=== PATIENT | female | born 1985 | race Caucasian/White ===

== ENCOUNTER 2020-07-26 17:54 | Emergency (ER) | payer MEDICAID ==
[2020-07-26] MEDS ORDERED: Amoxicillin/Clavulanate K 875-125 MG Tab PO ONE (17:55)
[2020-07-26] MEDS ORDERED: Sodium Chloride 0.9% 10 ML Syringe FLUSH PRN (18:22)
[2020-07-26] MEDS ORDERED: Ketorolac 30 MG/ML SDV IVPUSH STA (18:22)
[2020-07-26] MEDS ORDERED: Sodium Chloride 0.9% 1,000 ML IV SCH (18:30)
[2020-07-26] MEDS ORDERED: Acetaminophen/HYDROcodone 325-5 MG Tab PO STA (18:36)
[2020-07-26] MEDS ORDERED: Ondansetron 4 MG Tab.DIS PO STA (18:36)
--- NOTE | 2020-07-26 18:43 | EDM.PDOC ---
ED HPI GENERAL MEDICAL PROBLEM - General Stated Complaint: Abdominal pain Time Seen by Provider: 07/26/20 18:00 Source of Information: Reports: Patient History Limitations: Reports: No Limitations - History of Present Illness INITIAL COMMENTS - FREE TEXT/NARRATIVE: Patient presented to the ED because of abdominal pain which started at 1530. The pain is sharp and cramping,5/10, with associated nausea but no vomiting. There is no fever, chils, cough or cold symptoms. Two weeks ago she was diagnosed with diverticulitis which was treated with amoxicillin. Middle Abdomen Pain Score (Numeric/FACES): 4 - Related Data Allergies Allergy/AdvReac Type Severity Reaction Status Date / Time iodine Allergy Itching Verified 07/26/20 18:48 Home Meds: Home Meds Ciprofloxacin [Ciprofloxacin HCl] 500 mg PO BID #19 tablet 07/29/20 [Rx] metroNIDAZOLE [Flagyl] 500 mg PO Q8H #29 tablet 07/29/20 [Rx] ED ROS GENERAL - Review of Systems Review Of Systems: See Below Constitutional: Reports: No Symptoms HEENT: Reports: No Symptoms Respiratory: Reports: No Symptoms Cardiovascular: Reports: No Symptoms Endocrine: Reports: No Symptoms GI/Abdominal: Reports: Abdominal Pain, Nausea : Reports: No Symptoms Musculoskeletal: Reports: No Symptoms Skin: Reports: No Symptoms Neurological: Reports: No Symptoms ED EXAM, GI/ABD - Physical Exam Exam: See Below Exam Limited By: No Limitations General Appearance: Alert, No Apparent Distress Ears: Normal External Exam, Normal Canal Nose: Normal Inspection, Normal Mucosa Throat/Mouth: Normal Inspection, Normal Lips, Normal Teeth Head: Atraumatic, Normocephalic Neck: Normal Inspection, Supple, Non-Tender, Full Range of Motion Respiratory/Chest: No Respiratory Distress, Lungs Clear, Normal Breath Sounds, No Accessory Muscle Use, Chest Non-Tender Cardiovascular: Normal Peripheral Pulses, Regular Rate, Rhythm, No Edema, No Gallop, No JVD, No Murmur GI/Abdominal Exam: Normal Bowel Sounds, Soft, No Organomegaly, No Distention, No Abnormal Bruit, Other (tenderness over tle RLQ and LLQ and epigastric area) Back Exam: Normal Inspection, Full Range of Motion Extremities: Normal Inspection, Normal Range of Motion, Non-Tender, No Pedal Edema, Normal Capillary Refill Neurological: Alert, Oriented, CN II-XII Intact Course - Vital Signs Text/Narrative:: Labs and CT pending [place] 5/325, 2 po x1 Zofran ODT There was a change in shift so Dr. Edwards will take care of the discharge planning part. See Dr. Rojas' note for further details. Last Recorded V/S: Last Vital Signs Temp 36.9 C 07/26/20 17:55 Pulse 83 07/26/20 21:15 Resp 18 07/26/20 21:15 BP 132/78 07/26/20 21:15 Pulse Ox 98 07/26/20 21:15 - Orders/Labs/Meds Labs: Laboratory Tests 07/26/20 07/26/20 07/26/20 Range/Units 18:40 18:40 18:45 WBC 12.8 H (3.0-10.3) x10-3/uL RBC 4.60 (3.60-5.20) x10(6)uL Hgb 14.2 (11.4-15.5) g/dL Hct 41.9 (34.2-48.2) % MCV 91.1 (76.7-100.5) fL MCH 30.8 (23.9-33.9) pg MCHC 33.8 (31.9-34.8) g/dL RDW 13.8 (12.3-16.5) % Plt Count 230 (151-488) x10(3)uL MPV 8.4 (7.1-12.4) fL Neut % (Auto) 76.1 (30.8-76.2) % Lymph % (Auto) 16.0 L (18.4-52.1) % Craig % (Auto) 6.5 (4.4-15.7) % Eos % (Auto) 0.7 (0.6-8.1) % Baso % (Auto) 0.7 (0.2-1.5) % Neut # (Auto) 9.8 H (1.5-6.3) x10-3/uL Lymph # (Auto) 2.0 (1.0-4.4) x10-3/uL Craig # (Auto) 0.8 (0.3-1.0) x10-3/uL Eos # (Auto) 0.1 (0.0-0.8) x10-3/uL Baso # (Auto) 0.1 (0.0-0.1) x10-3/uL Sodium (135-145) mmol/L Potassium (3.5-5.3) mmol/L Chloride (100-110) mmol/L Carbon Dioxide (21-32) mmol/L BUN (7-18) mg/dL Creatinine (0.55-1.02) mg/dL Est Cr Clr Drug Dosing mL/min Estimated GFR (MDRD) (>60) BUN/Creatinine Ratio (9-20) Glucose (80-116) mg/dL Calcium (8.6-10.2) mg/dL Total Bilirubin (0.1-1.3) mg/dL AST (5-25) IU/L ALT (12-36) U/L Alkaline Phosphatase (56-112) IU/L Total Protein (6.0-8.0) g/dL Albumin (3.5-5.2) g/dL Globulin g/dL Albumin/Globulin Ratio Amylase (25-115) U/L Lipase (73-393) U/L Urine Color Yellow (YELLOW) Urine Appearance Clear (CLEAR) Urine pH 5.0 (5.0-6.5) Ur Specific Norden 1.025 (1.010-1.025) Urine Protein Negative (NEGATIVE) mg/dL Urine Glucose (UA) Normal (NORMAL) mg/dL Urine Ketones Negative (NEGATIVE) mg/dL Urine Occult Blood Negative (NEGATIVE) Urine Nitrite Negative (NEGATIVE) Urine Bilirubin Negative (NEGATIVE) Urine Urobilinogen 1 H (NEGATIVE) mg/dL Ur Leukocyte Esterase Negative (NEGATIVE) Urine RBC 0-5 (0-5) Urine WBC 0-5 (0-5) Ur Squamous Epith Cells Few H (NS,R,O) Urine Bacteria Few H (NS) Urine HCG, Qual Negative (NEGATIVE) 07/26/20 07/26/20 Range/Units 18:45 18:45 WBC (3.0-10.3) x10-3/uL RBC (3.60-5.20) x10(6)uL Hgb (11.4-15.5) g/dL Hct (34.2-48.2) % MCV (76.7-100.5) fL MCH (23.9-33.9) pg MCHC (31.9-34.8) g/dL RDW (12.3-16.5) % Plt Count (151-488) x10(3)uL MPV (7.1-12.4) fL Neut % (Auto) (30.8-76.2) % Lymph % (Auto) (18.4-52.1) % Craig % (Auto) (4.4-15.7) % Eos % (Auto) (0.6-8.1) % Baso % (Auto) (0.2-1.5) % Neut # (Auto) (1.5-6.3) x10-3/uL Lymph # (Auto) (1.0-4.4) x10-3/uL Craig # (Auto) (0.3-1.0) x10-3/uL Eos # (Auto) (0.0-0.8) x10-3/uL Baso # (Auto) (0.0-0.1) x10-3/uL Sodium 142 (135-145) mmol/L Potassium 3.8 (3.5-5.3) mmol/L Chloride 104 (100-110) mmol/L Carbon Dioxide 27 (21-32) mmol/L BUN 11 (7-18) mg/dL Creatinine 0.9 (0.55-1.02) mg/dL Est Cr Clr Drug Dosing 70.59 mL/min Estimated GFR (MDRD) > 60 (>60) BUN/Creatinine Ratio 12.2 (9-20) Glucose 126 H (80-116) mg/dL Calcium 8.3 L (8.6-10.2) mg/dL Total Bilirubin 0.2 (0.1-1.3) mg/dL AST 29 H (5-25) IU/L ALT 47 H (12-36) U/L Alkaline Phosphatase 63 (56-112) IU/L Total Protein 7.0 (6.0-8.0) g/dL Albumin 3.2 L (3.5-5.2) g/dL Globulin 3.8 g/dL Albumin/Globulin Ratio 0.8 Amylase 33 (25-115) U/L Lipase 75 (73-393) U/L Urine Color (YELLOW) Urine Appearance (CLEAR) Urine pH (5.0-6.5) Ur Specific Norden (1.010-1.025) Urine Protein (NEGATIVE) mg/dL Urine Glucose (UA) (NORMAL) mg/dL Urine Ketones (NEGATIVE) mg/dL Urine Occult Blood (NEGATIVE) Urine Nitrite (NEGATIVE) Urine Bilirubin (NEGATIVE) Urine Urobilinogen (NEGATIVE) mg/dL Ur Leukocyte Esterase (NEGATIVE) Urine RBC (0-5) Urine WBC (0-5) Ur Squamous Epith Cells (NS,R,O) Urine Bacteria (NS) Urine HCG, Qual (NEGATIVE) Meds: Medications Discontinued Medications Generic Name Dose Route Start Last Admin Trade Name Freq PRN Reason Stop Dose Admin Hydrocodone Bitart/Acetaminophen 2 tab 07/26/20 18:36 07/26/20 18:49 Acetaminophen/Hydrocodone 325-5 Mg Tab PO 07/26/20 18:37 2 tab NOW STA Administration Amoxicillin/Clavulanate Potassium 20 tab 07/26/20 17:55 Amoxicillin/Clavulanate K 875-125 Mg Tab PO 07/26/20 17:56 .STK-MED ONE Sodium Chloride 1,000 mls @ 999 mls/hr 07/26/20 18:30 Normal Saline IV ASDIRECTED [facility] Dextrose/Sodium Chloride 1,000 mls @ 125 mls/hr 07/26/20 20:45 Dextrose 5%-Normal Saline IV ASDIRECTED [facility] Ciprofloxacin/Dextrose 400 mg/ 200 mls @ 200 mls/hr 07/26/20 21:00 Premix IV Q8H HILDA Metronidazole 500 mg/ Premix 100 mls @ 100 mls/hr 07/26/20 20:45 IV Q8H [facility] Ketorolac Tromethamine 30 mg 07/26/20 18:22 07/26/20 19:18 Ketorolac 30 Mg/Ml Sdv IVPUSH 07/26/20 18:23 Not Given NOW STA Ketorolac Tromethamine 30 mg 07/26/20 20:41 Ketorolac 30 Mg/Ml Sdv IM Q6H PRN Pain (moderate 4-6) Morphine Sulfate 2 mg 07/26/20 20:41 Morphine 2 Mg/Ml Syringe IVPUSH Q2H PRN Pain (severe 7-10) Ondansetron HCl 4 mg 07/26/20 18:36 07/26/20 18:49 Ondansetron 4 Mg Tab.Dis PO 05/19/21 18:37 4 mg NOW STA Administration Sodium Chloride 10 ml 07/26/20 18:22 Sodium Chloride 0.9% 10 Ml Syringe FLUSH ASDIRECTED PRN Keep Vein Open Departure - Departure Time of Disposition: 19:00 Disposition: Against Medical Advice 07 Clinical Impression: Abdominal pain - Discharge Information Instructions: Diverticulitis, [id number] Referrals: PCP,None [Primary Care Provider] - Forms: ED Department Discharge
[2020-07-26] MEDS ORDERED: Morphine 2 MG/ML SYRINGE IVPUSH PRN (20:41)
[2020-07-26] MEDS ORDERED: Ketorolac 30 MG/ML SDV IM PRN (20:41)
[2020-07-26] MEDS ORDERED: metroNIDAZOLE/Normal Saline 500 MG in Premix Bag 1 BAG IV SCH (20:45)
[2020-07-26] MEDS ORDERED: Dextrose 5%-0.9% NaCl 1,000 ML IV SCH (20:45)
[2020-07-26] MEDS ORDERED: Ciprofloxacin in D5W 400 MG in Premix Bag 1 BAG IV SCH ×2 (21:00)
--- NOTE | 2020-07-26 21:31 | ER ---
DATE SEEN: 07/26/2020 CHIEF COMPLAINT: Left lower quadrant abdominal pain. HISTORY OF PRESENT ILLNESS: This is a 34-year-old female, who has had left lower quadrant abdominal pain since this morning. Last month, she was seen for acute diverticulitis in [place], [place]. PHYSICAL EXAMINATION: GENERAL: She is not in distress. ABDOMEN: Soft with mild tenderness in the left lower quadrant. LABORATORY DATA: Lab showed a white cell count of 12,000. RADIOGRAPHIC DATA: A CT confirmed acute diverticulitis with a small perforation in the cecum. IMPRESSION: Acute diverticulitis with perforation. PLAN: I recommended to Admit for observation, IV antibiotics, n.p.o. status. I did discuss with Dr. John Levin, who will come in the morning to see her as well.However,due to patient's wild for daycare,she left AMA ,and I sent her with oral Augmentin. /[id number] RACHEAL/RIAZ RAMIREZ
== END 2020-07-26 21:30 | disposition left against medical advice (07) ==
LOC: FB.ED 17:54 → MERGE 17:54 → UNDOADMOB 20:52 → FB.MS 20:52 → FB.ED 21:30
DX: K57.20 Diverticulitis of large intestine with perforation and abscess without bleeding (principal); Z91.041 Radiographic dye allergy status
CPT/HCPCS: 36415; 74176; 80053; 81001; 81025; 82150; 83690; 85025; 99284-25; A9270-GY

== ENCOUNTER 2024-12-03 16:01 | Emergency (ER) | payer BC, MEDICAID ==
[2024-12-03] MEDS: methylPREDNISolone Sodium Succinate 125 MG/2 ML SDV IM ONE (17:05)
[2024-12-03] MEDS: hydrOXYzine HCl 50 MG/ML SDV IM ONE (17:06)
== END 2024-12-03 17:55 | disposition home or self-care (01) ==
LOC: FB.ED 16:01
DX: L42 Pityriasis rosea (principal); E11.9 Type 2 diabetes mellitus without complications; F17.200 Nicotine dependence, unspecified, uncomplicated; Z88.2 Allergy status to sulfonamides; Z88.8 Allergy status to other drugs, medicaments and biological substances; Z79.4 Long term (current) use of insulin; Z79.899 Other long term (current) drug therapy
CPT/HCPCS: 96372; 99282; J2919; J3410; 99284